=== PATIENT | male | born 1990 | race Caucasian/White ===

== ENCOUNTER 2019-11-04 14:53 | Emergency (ER) | payer BC, SELFPAY ==
[2019-11-04 14:59] VITALS: BP 136/100; PULSE 102; RESP 20; TEMP 36.2; O2SAT 100
--- NOTE | 2019-11-04 15:01 | ED.WOUNDLAC ---
HPI - Wound/Laceration General Chief Complaint: Wound/Laceration Stated Complaint: hand lac Time Seen by Provider: 11/04/19 14:55 Source: patient Mode of arrival: ambulatory Limitations: no limitations History of Present Illness HPI narrative: 28 yo male right hand dominant who presents with c/o left index finger laceration . Patient states just prior to arrival he was cutting limbs on a tree when the knives accidentally slipped cutting his left index finger. Patient reports only minimal pain He denies any difficulty moving finger. He denies numbness or tingling. His last tetanus was 4 years ago. Onset (ago): minute(s) Location: other (left index finger) Related Data Home Medications Medication Instructions Recorded Confirmed No Home Medications 11/04/19 11/04/19 Allergies Allergy/AdvReac Type Severity Reaction Status Date / Time No Known Allergies Allergy Verified 11/04/19 15:01 Review of Systems Musculoskeletal: Musculoskeletal: Denies myalgias Neurologic: Denies focal weakness and Denies numbness PMFSH Past Medical History Medical History (Updated 11/05/19 @ 00:00 by Marry Galindo) Healthy adult Family History Family History (Updated 11/24/16 @ 08:47 by DOCTOR UNKNOWN) Sibling Patient's brother is in good health Social History Social History Smoking status: Never smoker Second hand tobacco smoke exposure: No Smoking end date: 07/26/15 Alcohol intake: current Exam Const: General: alert Orientation/consciousness: patient oriented x3 Eyes: Pupils: Equal, round and reactive pupils present Resp: Effort & Inspection: normal respiratory effort Skin: Other: left index finger with 1 cm laceration on radial aspect of proximal finger no exposed bone or tendon Neuro: General: patient oriented x3 and moves all extremities Course Vital Signs Vital signs: Vital Signs Temperature 97.2 F L 11/04/19 14:59 Pulse Rate 102 H 11/04/19 14:59 Respiratory Rate 11/04/19 14:59 Blood Pressure 136/100 H 11/04/19 14:59 Pulse Oximetry 100 11/04/19 14:59 Temperature 97.2 F L 11/04/19 14:59 Pulse Rate 102 H 11/04/19 14:59 Respiratory Rate 11/04/19 14:59 Blood Pressure 136/100 H 11/04/19 14:59 Pulse Oximetry 100 11/04/19 14:59 Procedures Laceration Laceration 1: Date: 11/04/19 Time: 16:09 Site: hand Side (If applicable): left Size (cm): 1 Description: linear Depth: simple, single layer Local Anesthetic: bupivacaine 0.5% Amount of anesthesia used (mL): 1 Pre-repair: irrigated ====== Skin Level ====== Skin layer closed with: prolene Size (cm): 4-0 Number of sutures: 3 Technique: horizontal mattress ====== Subcutaneous Layer ====== ====== Muscle Layer ====== ====== Tendon Layer ====== Discharge Plan Discharge Clinical Impression: Laceration of left index finger Patient Disposition: Home, Self-Care Condition: Stable Instructions: Antibiotic Form, Care For Your Stitches (ED), Laceration (ED) Additional Instructions: Keep your wound clean with soap and water. You will need to have stitches removed in 7 days. Watch for signs of infection. Prescriptions: No Action No Home Medications RF: 0 Follow-up/Referrals: Anshu Mena PA-C [Primary Care Provider] - Discharge Date/Time: 11/04/19 16:29
== END 2019-11-04 16:29 | disposition home or self-care (01) ==
PROVIDERS: Emergency Provider General Practice; PCP Physician Assistant
DX: S61.211A Laceration without foreign body of left index finger without damage to nail, initial encounter (principal); W26.0XXA Contact with knife, initial encounter; Y93.H2 Activity, gardening and landscaping
CPT/HCPCS: 12001; 99282

== ENCOUNTER 2022-03-31 17:43 | Emergency (ER) | payer BC, SELFPAY ==
--- NOTE | 2022-03-31 17:53 | ED.URI ---
HPI - URI/Sore Throat General Chief Complaint: Upper Respiratory Infection Stated Complaint: LOSING VOICE/SORE THROAT Time Seen by Provider: 03/31/22 18:02 Source: patient and RN notes reviewed Mode of arrival: ambulatory Limitations: no limitations History of Present Illness HPI Narrative: 31-year-old male presents concern for sore throat for 2 days. He reports painful swallowing and a small headache. Reports he has been using cough drops. He denies nasal congestion, rhinorrhea, cough, shortness of breath, fever, body aches, chills, sweats. Denies any known sick contacts MD elicited complaint: sore throat Related Data Home Medications Medication Instructions Recorded Confirmed armodafinil 200 mg tablet mg PO 03/31/22 Allergies Allergy/AdvReac Type Severity Reaction Status Date / Time No Known Allergies Allergy Verified 08/01/21 08:52 Review of Systems Review of Systems: CONSTITUTIONAL: Denies malaise, chills, sweats, or fever. EYES: Denies visual changes, redness, or discharge. ENT: Denies rhinorrhea, congestion, sinus pain, otalgia. Reports sore throat. CARDIOVASCULAR: Denies chest pain, palpitations, or edema. RESPIRATORY: Reports cough. Denies dyspnea. GASTROINTESTINAL: Denies abdominal pain, nausea, vomiting, diarrhea SKIN: Denies rash or itching. MUSCULOSKELETAL: Denies myalgia. NEUROLOGIC: Reports headache. All systems reviewed & are unremarkable except as noted in HPI and below PMFSH Past Medical History Medical History Healthy adult Family History Family History Sibling Patient's brother is in good health Social History Social History Smoking status: Never smoker Second hand tobacco smoke exposure: No Smoking end date: 07/26/15 Alcohol intake: current Comments At time of signature, agree with nursing past medical, surgical, social and family history. There is no relevant family history pertinent to the presenting complaint Exam Narrative: GENERAL: Well-appearing, well-nourished, and in no acute distress. HEAD: Normocephalic EYES: PERRLA, conjunctivae clear ENT: Nares clear. Mucous membranes moist. TM pearly quezada with dull light reflex bilaterally; no tragal tenderness. Oropharynx not erythematous without lesions. Tonsils not enlarged and without exudate, no drooling, no hoarseness, no trismus, uvula midline. NECK: Supple. No lymphadenopathy, no thyroidmegaly, carotids palpable. CHEST: Clear to auscultation, breath sounds equal. No wheezing, rhonchi, rales, or stridor. No respiratory distress, speaks in full sentences. HEART: Regular rate and rhythm. No murmur heard. SKIN: Warm, dry, no rash. NEURO: Alert and oriented x3. PSYCH: Normal mood and affect Course Course Emergency Course: Patient is aware of diagnosis, understands and agrees to treatment plan. Anticipatory guidance given. Patient agrees to follow-up as directed and is aware of reasons to seek care at the emergency department. Portions of this record may have been created with voice recognition software Level of Care: Express Care Visit Vital Signs Vital signs: Reviewed. MDM - URI/Sore Throat MDM Narrative Medical decision making narrative: Differential diagnosis considered: Miguel virus, strep pharyngitis, allergic rhinitis, upper respiratory tract infection, sinusitis, rhinosinusitis, nasopharyngitis. viral pharyngitis, otitis media, otitis externa, pneumonia, bronchitis, viral cough syndrome, viral syndrome, and influenza. Exam findings show no acute concerns or changes; patient is non-toxic appearing and is in no distress. Patient is appropriate for outpatient treatment and follow-up. Lab Data Attestation: I reviewed the patient's lab results. Critical Care Time Critical Care Time Critical Care Time: No Discharge Plan Discharge Clinic
[2022-03-31 17:57] VITALS: BP 134/98; PULSE 118; RESP 20; TEMP 37.1; O2SAT 98
== END 2022-03-31 18:13 | disposition home or self-care (01) ==
PROVIDERS: Emergency Provider Nurse Practitioner; PCP Physician Assistant
DX: J02.9 Acute pharyngitis, unspecified (principal); Z87.891 Personal history of nicotine dependence
CPT/HCPCS: 87081; 87804; 87880; 99213; G0463

== ENCOUNTER 2022-10-05 09:56 | Outpatient (CLI) | payer BC, SELFPAY ==
--- NOTE | 2022-10-29 19:04 | WPDSLEEPSTUD ---
Sleep Study Date of Study: 10/05/22 Ordering Provider: Anshu Mena PA-C Interpreting Physician: India Fong DO Sleep Study Type: Split Polysomnogram Height: 1.78 m Weight: 102.058 kg Body Mass Index: 32.3 Neck Circumference (inches): 17.5 Eastman: 13 Reason for Sleep Study Snoring, witnessed apneas Sleep History The patient is a 31 year with ADHD not had a sleep study ordered by his care for of sleep. The patient rarely awakens from sleep short of breath. He denies awakening at night with heartburn, belching or cough. He constantly snores loudly enough that others complain. He constantly has trouble sleeping when he has a cold. He denies waking up gasping for air throughout the night. He constantly has breathing problems at night observed by himself or others. He frequently sweats excessively at night. He denies having heart palpitations or irregular heartbeats during the night. He frequently falls asleep during the day but never while driving. He denies sleep paralysis and cataplexy. He rarely has trouble at school or work due to sleepiness. He rarely experiences vivid dreamlike scenes upon awakening or falling asleep. He denies feeling afraid of going to sleep. He rarely has nightmares. He rarely remembers his dreams. He occasionally has thoughts racing through his mind. He rarely feels sad or depressed. He frequently has anxiety. He frequently has muscular tension. He denies noticing parts of his body jerk. He occasionally kicks during the night. He rarely has crawling and aching feelings in his legs and rarely has leg pain during the night. He frequently grinds his teeth during sleep and occasionally awakens morning pain. He is occasionally bothered by pain during the day but never awakened by pain during the night. He constantly wakes feeling stiff. He rarely wakes up with sore or achy muscles. He frequently wakes up with pain neck spine or other joints. The patient currently works swing shift so he does not have a consistent bedtime or wake up time. He can take him up to an hour or more to fall asleep. He wakes 1-2 times throughout the night for unknown reasons. When he awakens, he will eat, but something relaxing on to listen to and try to get back to sleep. It can take him 30 minutes to an hour to fall back asleep. He does not stay in bed after waking up in the morning. He currently lives with his and 2 daughters. He does not consume any caffeinated beverages within 2 hours of bedtime. He does not engage in physical exercise before bedtime. He will watch television before falling asleep. He denies taking naps afternoon or the evening. He consumes 2 caffeinated beverages per day. He will very rarely consume alcohol. He denies tobacco and recreational drug use. [facility] Past Medical History Medical History Healthy adult Family History Family History Sibling Patient's brother is in good health Social History Social History Smoking status: Never smoker Second hand tobacco smoke exposure: No Smoking end date: 07/26/15 Alcohol intake: current Substance use: unknown Lack of Transportation: No Lack of Food: Never True Current Housing: I Have Housing Concerned About Future Housing: No Difficulty Paying Gas/Electric Bills: No Difficulty Paying for Meds: No Currently Unemployed: No Education: High School Diploma/GED Difficulty w/ Childcare or Family Care: No Medications Home Medications Medication Instructions Recorded Confirmed Type armodafinil 200 mg tablet mg PO 03/31/22 08/05/22 History Sleep Procedure This test was performed using the [employer]VC Lighting multiple channel system including EOG, EEG, submental EMG, EKG, nasal and oral airflow using thermistors and nasal pressu
[2022-10-29 19:20] VITALS: BMI 32.3
== END 2022-10-06 06:28 | disposition home or self-care (01) ==
LOC: ANHCSM 09:57
PROVIDERS: PCP Physician Assistant; Visit Provider Physician Assistant
DX: G47.9 Sleep disorder, unspecified (principal); G47.39 Other sleep apnea
CPT/HCPCS: 95811

== ENCOUNTER 2023-02-22 19:58 | Emergency (ER) | payer BC, SELFPAY ==
[2023-02-22 20:42] VITALS: BP 132/91; PULSE 86; RESP 16; TEMP 36.6; O2SAT 99
--- NOTE | 2023-02-22 23:32 | ED.GENADULT ---
HPI - General Adult General Chief complaint: Skin/Abscess/Foreign Body Stated complaint: chicken lodged in throat Time Seen by Provider: 02/22/23 22:46 Source: patient Mode of arrival: ambulatory Limitations: no limitations History of Present Illness HPI narrative: This is a 32-year-old male who presents to the ED with chief complaint of globus sensation onset just prior to arrival. Patient states that he ate chicken tonight and tried to swallow a piece that was not chewed up enough. He states this is happened in the past with other meats. States he tried a couple of home remedies without relief. He still feels like it is hard to swallow. Denies any further complaints. Related Data Home Medications Medication Instructions Recorded Confirmed armodafinil 200 mg tablet mg PO 03/31/22 08/05/22 Allergies Allergy/AdvReac Type Severity Reaction Status Date / Time No Known Allergies Allergy Verified 08/03/22 09:40 [facility] Past Medical History Medical History Healthy adult Family History Family History Sibling Patient's brother is in good health Social History Social History Smoking status: Never smoker Second hand tobacco smoke exposure: No Smoking end date: 07/26/15 Alcohol intake: current Substance use: unknown Lack of Transportation: No Lack of Food: Never True Current Housing: I Have Housing Concerned About Future Housing: No Difficulty Paying Gas/Electric Bills: No Difficulty Paying for Meds: No Currently Unemployed: No Education: High School Diploma/GED Difficulty w/ Childcare or Family Care: No Exam Narrative: GENERAL: Well-appearing, well-nourished, and in no acute distress. HEAD: Normocephalic, atraumatic. EYES: PERRLA and EOMI. ENT: Nares clear, no rhinorrhea or epistaxis. Mucous membranes moist. Oropharynx without tonsillar hypertrophy exudate or other lesions. Tolerating secretions. Airway intact. NECK: Supple. No adenopathy or masses. CHEST: No respiratory distress. Clear to auscultation. No wheezes rales or rhonchi HEART: Regular rate and rhythm. No murmur heard. Normal peripheral pulses. ABDOMEN: Soft, nontender, nondistended, normal active bowel sounds. MSK: Normal range of motion. No edema. SKIN: Warm, dry, no rash. NEURO: Alert and oriented x3. No focal deficits. PSYCH: Normal mood and affect. Course Vital Signs Vital signs: Vital Signs Temperature 97.8 F 02/22/23 20:42 Pulse Rate 86 02/22/23 20:42 Respiratory Rate 16 02/22/23 20:42 Blood Pressure 132/91 H 02/22/23 20:42 Pulse Oximetry 99 02/22/23 20:42 Oxygen Delivery Room Air 02/22/23 20:42 Temperature 97.8 F 02/22/23 20:42 Pulse Rate 86 02/22/23 20:42 Respiratory Rate 16 02/22/23 20:42 Blood Pressure 132/91 H 02/22/23 20:42 Pulse Oximetry 99 02/22/23 20:42 Oxygen Delivery Room Air 02/22/23 20:42 Medical Decision Making MDM Narrative Medical decision making narrative: This is a 32-year-old male who presents to the ED with chief complaint of a globus sensation. He ate a piece of chicken and feels like it is stuck. Vitals are normal. Exam is benign. Tolerating secretions. I had him drink a full can of Pepsi which provided great relief. He immediately felt completely resolved. Upon reevaluation, still feeling better and ready to go home. Discussed supportive measures for home in case this happens again. Return precautions given. He is understanding and agreeable with plan for discharge and follow-up with PCP. Vital Signs Vital Signs: Vital Signs Temperature 97.8 F 02/22/23 20:42 Pulse Rate 86 02/22/23 20:42 Respiratory Rate 16 02/22/23 20:42 Blood Pressure 132/91 H 02/22/23 20:42 Pulse Oximetry 99 02/22/23 20:42 Oxygen Delivery Room Air 02/22/23
== END 2023-02-22 23:55 | disposition home or self-care (01) ==
PROVIDERS: Emergency Provider Physician Assistant; PCP Physician Assistant
DX: R09.89 Other specified symptoms and signs involving the circulatory and respiratory systems (principal); Z87.891 Personal history of nicotine dependence
CPT/HCPCS: 99281

== ENCOUNTER 2024-09-27 15:30 | Outpatient (CLI) | payer BC, SELFPAY ==
--- NOTE | ~2024-09-27 | XR_ITS ---
CHEST RADIOGRAPH, PA AND LATERAL CLINICAL HISTORY: R05.8 - Other specified cough . COMPARISON: 09/04/2014 TECHNIQUE: PA and lateral views of the chest. FINDINGS The cardiomediastinal silhouette is unremarkable. The lungs are clear. Visualized osseous structures and soft tissues are unremarkable. IMPRESSION: No focal infiltrate or effusion. Reviewed, dictated and finalized at location A. NEERING ILLUSTRATOR
== END 2024-09-27 15:31 | disposition home or self-care (01) ==
PROVIDERS: PCP Internal Medicine; Visit Provider Nurse Practitioner
DX: R05.8 Other specified cough (principal)
CPT/HCPCS: 71046

== ENCOUNTER 2025-01-24 00:27 | Day surgery (SDC) | payer BC, SELFPAY ==
[2025-01-22 12:47] VITALS: BMI 33.3
--- NOTE | 2025-01-22 12:53 | PC.NURSE ---
Report to the Outpatient Waiting Room, entrance under the green pavilion located off [facility], at time _1230_ on date _[id number]_. Planned Procedure Time: _230pm_.? Time changes happen often and if your time is changed the preop area will call you the afternoon before. - You and your visitor will be asked to self-screen and do not enter if you have any COVID symptoms. Please call surgeon if you need to reschedule. - A mask is optional within the hospital at this time. May have clear liquids (water, carbonated beverages, clear teas, apple juice) until 630am with a maximum of 20 ounces. Nothing to drink after 0630am. - No food from midnight until time of surgery and no smoking, or chewing tobacco (or any form of nicotine). No chewing gum, candy or mints. Take only the following medications with a SIP of water on the morning of surgery: ___None____ DO NOT STOP ANY OF YOUR OTHER PRESCRIPTION MEDICATIONS PRIOR TO SURGERY EXCEPT THE FOLLOWING Hold all vitamins and supplements for 3 days per anesthesiologist. Medications to discontinue per physician Date to take last dose Please no make-up, nail maori, hairspray, perfume, deodorant, or body powder the day of surgery.? No jewelry (including any body piercings) or valuables the day of surgery, leave them at home.? Please take a shower or bath the night before, or the morning of, surgery with an antibacterial soap.? Wear comfortable, loose fitting clothing.? - Jewelry must be removed prior to entering the operating room.? Rings and piercings that are not removed may be cut off. - The hospital will not accept responsibility for valuables.? - Please leave all valuables, including medications, at home the day of surgery. If you are going home after surgery, a licensed sprinkling truck driver must drive you home.? - NO public transportation without another adult if you receive anesthesia. - We recommend that an adult stay with you for 24 hours following discharge. - We also recommend that you do not drive, make important decision, drink alcoholic beverages, or take any drugs that were not prescribed by your health care provider for at least 24 hours after your discharge time. Follow any additional instructions given to you from your surgeon. Telephone instructions given to __Shlomo___and asked if any additional questions and then verbalized understanding. Patient advised to call surgeon office or pre surgery nurse liaison [phone] if any additional questions.
--- OUTSIDE RECORDS SUMMARY | 2025-01-24 00:30 | XMS_ITS | Patient Health Record ---
Author Organization [facility] [employer] [facility] Address [address] [facility] [address] [place] [address] Care Team Providers Care Charge Rn Name Role Phone Cecilia Pike Unavailable [phone] Rinku Omer Unavailable [phone] Reason For Referral No Information Medications Medication SIG (Take, Route, Fr equency, Duration) Notes Start Date End Date Status Armodafinil 200 MG Oral 06/28/2023 Active Immunizations Vaccine Route Administration Date Status Comme nts Pfizer Biontech Covid-19 Vac cine 2nd dose Unknown 09/26/2020 Administered Pfizer Biontech Covid-19 Vac cine 2nd dose Unknown 10/19/2020 Administered Pfizer Biontech Covid-19 Vac cine 2nd dose Unknown 05/30/2021 Administered Tdap Unknown 02/24/2016 Administered Encounters Encounter Location Date Provider Diagnosis [facility] [address] [facility] [address] [facility] [address] [place] [address] 02/24/2024 Rinku Omer Plan Of Treatment No Information Insurance Providers Payer Name Payer Address Payer Phone Subscriber Number Group Number Insured Name Patient Relationship to Insured Coverage Start Date Coverage End Date [employer] [employer] [address] [place] [address] [id number] LAKEISHA LEMON Self - patient is the insured Medical (General) History Surgical History Surgery Date(Month/Year) Vasectomy ([id number]) 03/30/2023
--- OUTSIDE RECORDS SUMMARY | 2025-01-24 00:30 | XMS_ITS | Clinical Summary ---
Author Organization [facility] Address [address] [place] [id number] Care Team Providers Care Diorama Model Maker Name Role Phone Unavailable Primary Care Provider Unavailabl e Immunizations Immunization Administration Dates Next Due Covid-19, Mrna, Lnp-s, Pf, 30 Mcg/0.3 Ml Dose (P fizer) 05/30/2021 Social History Tobacco Use Types Packs/Day Years Used Date Smoking Tobacco: Never Assessed Sex and Gender Information Value Date Recorded Sex Assigned at Not on file Legal Sex Male 11:05 AM CDT Gender Identity Not on file Sexual Orientation Not on file Plan of Treatment Health Maintenance Due Date Last Done Comments Hepatitis C Virus (HCV) Screening 1990 Hepatitis B Immunization (1 of 3 - 19+ 3-dose series) 2009 SARS-COV-2 Immunization ( season) 2024 05/30/2021 Influenza Immunization (Seas on Ended) 2025 Respiratory Syncytial Virus (RSV) Immunization (Adult) (1 - 1-dose 75+ series) 2065 DTaP/Tdap/Td Immunization Discontinued 12/25/2016 TdaP Immunization Completed 12/25/2016 Human Papillomavirus (HPV) Immunization Aged Out No longer eligible b ased on patient's age to complete this topic Meningococcal Immunization (ACWY) Aged Out No longer eligible based on patient's age to complete this topic Pneumococcal Immunization Combined Aged Out No longer eligible based on patient's age to complete this topic Rotavirus Immunization Aged Out No lo nger eligible based on patient's age to complete this topic
--- NOTE | 2025-01-24 07:09 | WPDHPUPDATE1 ---
History and Physical Update Update Date/Time: 01/24/25 07:09 Patient seen and examined in pre-operative holding area. No interval change in medical history or symptoms. Patient recalls previous discussion of benefits and alternatives to procedure. Continues to desire to proceed with right pariteal scalp mass excision. Reviewed procedure, post-op expectations and risks including but not limited to bleeding, infection, undesireable cosmetic appearance, recurrence, contour irregularity, recurrence.. I discussed the possible use of assistants and their participation in the case. Patient stated understanding and signed the consent form wishing to proceed.
--- NOTE | 2025-01-24 07:10 | W.PM.PROC2 ---
Procedure Note - Detailed Date of Procedure 01/24/25 Pre-op Diagnosis scalp mass Post-op Diagnosis Same Procedure Performed right pareital mass excision Surgeon Mary Jamison MD Contact Center Manager cayetano elmore pa-c Anesthesia MAC Description of Procedure Patient was seen in the preoperative holding area where the consent form was signed and the area of the right parietal scalp mass was marked. Patient was taken back to the operating room on the stretcher in the supine position. Time-out was performed with Anesthesia, surgeon, and staff agreeing on patient's name, site, and surgery to be performed. SCDs were placed on the lower extremities and inflated. Antibiotics were given IV. After anesthesia administered sedation I injected 7 cc of 1% lidocaine with epinephrine and 0.5% Marcaine plain for local anesthesia. I proceeded with making a low oblique incision between hair follicles over the mass through skin and dermis with 15 blade scalpel. Littler scissors were used to spread down to the temporal fascia as the mass appeared to be subfascial. I made incision in the fascia proceed with circumferential dissection around this mass. The mass measured 4 cm in diameter. I irrigated with normal saline after mass resection. Hemostasis was done with bovie cautery. Closure was done with 3-0 Vicryl for fascia and dermis. 4-0 chromic for skin closure. A dressing of bacitracin, 4 x 4 and head wrap was applied. The patient was awakened from anesthesia and transferred to the recovery room in stable condition. Complications: None Estimated blood loss: 3 cc Disposition: Patient tolerated the procedure well and will go home later today Lubna Elmore PA-C was essential for positioning, retraction, closure and dressing placement [facility] Billing Surgery - Charge Forward: Surgery Billing ([id number] same for lubna ruelas )
[2025-01-24 11:55] VITALS: BP 140/84; PULSE 85; RESP 16; TEMP 36.5; O2SAT 98
[2025-01-24] MEDS: LACTATED RINGERS 1,000 ML 30 ML IV CONT (12:05)
--- NOTE | 2025-01-24 13:22 | WPDANESEPPF ---
Anes - Initial Pre Proc Eval Procedure: Operation Date: 01/24/25 14:00 Proposed Procedures p Excision Right Scalp Mass - Mary Jamison MD Date/Time: 01/24/25 13:22 Surgeon: Mary Jamison MD Pre Op Diagnosis: scalp mass Patient Data Age: 34 Gender: M Height: 1.75 m Weight: 101.6 kg Last Vital Signs Temp 97.7 F 01/24/25 11:55 Pulse 85 01/24/25 11:55 Resp 16 01/24/25 11:55 BP 140/84 01/24/25 11:55 Pulse Ox 98 01/24/25 11:55 O2 Del Method Room Air 01/24/25 11:55 Allergies Allergy/AdvReac Type Severity Reaction Status Date / Time No Known Allergies Allergy Verified 01/22/25 12:46 Home Medications ?Medication ?Instructions ?Recorded ?Confirmed ?Type tramadol 50 mg tablet 50 mg PO Q6H PRN pain #12 tabs 01/24/25 Rx Patient hx anesthesia problems: none Family hx anesthesia problems: none Results Review: All pre-operative results and documents have been reviewed as part of the pre-operative evaluation. [facility] Past Medical History Medical History Healthy adult Family History Family History Sibling Patient's brother is in good health Social History Social History (Updated 10/10/24 @ 14:47 by Brad Berkowitz CMA) Smoking status: Never smoker Second hand tobacco smoke exposure: No Smoking end date: 07/26/15 Alcohol intake: current Substance use: unknown Lack of Transportation: No Lack of Food: Never True Current Housing: I Have Housing Concerned About Future Housing: No Difficulty Paying Gas/Electric Bills: No Difficulty Paying for Meds: No Currently Unemployed: No Education: High School Diploma/GED Difficulty w/ Childcare or Family Care: No Anes - Eval Final PreProcedure Day of Procedure 01/24/25 13:22 Patient weight: obese Heart: regular rate and rhythm Lungs: clear to auscultation Airway: Mallampati scale class II Neurological: alert and oriented Last oral intake: >/= 8 hours ASA classification: II Emergent: no Anesthetic plan: proceed Anesthesia type and monitoring: general GIVS (may use LMA) and LMA and standard monitoring Results Review: All pre-operative results and documents have been reviewed as part of the pre-operative evaluation. Informed Consent: The patient's anesthetic plan and its attendant risks and benefits were discussed with the patient/family/POA. Questions were solicited and answers provided to the satisfaction of the patient/family/POA.
[2025-01-24] MEDS: BUPivacaine HCL 0.5% 10 ML AMP INFILTRATE (13:54)
[2025-01-24] MEDS: ceFAZolin 2 GM/D5W 50 ML 2 GM/50 ML BAG IVPB (13:54)
[2025-01-24] MEDS: LIDO 1%/EPINEPHRINE 1:100,000 50 ML VIAL 10 ML INFILTRATE (13:54)
--- NOTE | 2025-01-24 14:08 | S_PTH ---
PATIENT: Shlomo Jhaveri LOC: [facility] U#:[id number] AGE/SX: 34/M ROOM: RE01/24/[address]: Mray Jamison MD : 1990 BED: DIS: 01/24/2025 SPEC #: [id number] RECD: 01/25/25 10:33 STATUS: RHIANNON REQ #: [id number] MELANIE: 01/24/25 14:[address]: Mary Jamison DEPT: [facility] Surgical RECD BY: Kasia Chávez ENTERED: 01/25/25 10:34 SP TYPE: Surgical OTHR DR: Abhishek Dimas DO Tissues: A - Mass Procedures: Hematoxylin and Eosin Stain Gross and Microscopic Level 3
[2025-01-24] MEDS: BACITRACIN OINTMENT 15 GM TUBE 1 APPLIC TOPICAL (14:10)
[2025-01-24 14:25] VITALS: BP 112/73; PULSE 109; RESP 14; O2SAT 94
[2025-01-24 14:50] VITALS: BP 118/82; PULSE 90; RESP 20
[2025-01-24 15:15] VITALS: BP 124/80; PULSE 86; RESP 20
== END 2025-01-24 15:20 | disposition home or self-care (01) ==
PROVIDERS: PCP Internal Medicine; Visit Provider Plastic Surgery
PROC: (CPT 21012; principal; 2025-01-24 14:00)
DX: D17.0 Benign lipomatous neoplasm of skin and subcutaneous tissue of head, face and neck (principal)
CPT/HCPCS: 21012; 88304; J0690; J2003; J2004; J2250; J2704; J7120